=== PATIENT | male | born 1965 | race Caucasian/White ===

== ENCOUNTER 2021-03-01 17:57 | Emergency (ER) | payer SELFPAY ==
[~2021-03-01] VITALS: Ht 165.1 cm; Wt 75.0 kg
[2021-03-01 18:15] VITALS: BP 105/81
== END 2021-03-01 19:35 | disposition left against medical advice (07) ==
LOC: ER 18:55
DX: Z53.21 Procedure and treatment not carried out due to patient leaving prior to being seen by health care provider (principal)

== ENCOUNTER 2021-08-20 14:56 | Inpatient (IN) | payer MEDICARE, MEDICAID ==
[~2021-08-20] VITALS: Ht 177.8 cm; Wt 77.4 kg
[2021-08-20] MEDS ORDERED: SODIUM CHLORIDE 0.9% 1,000 ML IV ONE (16:00)
[2021-08-20] MEDS ORDERED: LEVETIRACETAM 1000MG PREMIX 100 ML IV ONE (16:15)
[2021-08-20 16:29] LABS: CLARITY URINE CLEAR (CLEAR); COLOR URINE DARK YELLOW (YELLOW); KETONES URINE 1+ (NEGATIVE); LEUKOCYTE ESTERASE URINE 1+ (NEGATIVE); NITRITE URINE NEGATIVE (NEGATIVE); OCCULT BLOOD URINE NEGATIVE (NEGATIVE); PROTEIN URINE TRACE (NEGATIVE); SPECIFIC GRAVITY URINE 1.024 (1.005-1.030)
[2021-08-20 16:31] LABS: BASOPHILS % 0.5 % (0.0-2.0); EOSINOPHILS % 1.5 % (0.0-5.0); HEMATOCRIT. 34.7 % (42.0-52.0); HEMOGLOBIN. 11.2 g/dL (14.0-18.0); LYMPHOCYTES % 25.2 % (20.0-50.0); MEAN CORPUSCULAR HEMOGLOBIN 29.9 pg (28.0-32.0); MEAN CORPUSCULAR VOLUME 92.9 fL (80.0-94.0); MEAN PLATELET VOLUME 10.2 fl (7.4-10.4); MONOCYTES % 13.4 % (2.0-8.0); NEUTROPHILS % 59.4 % (40.0-76.0); RED BLOOD CELL COUNT 3.74 mill/uL (4.7-6.1); RED CELL DISTRIBUTION WIDTH 18.4 % (11.6-14.6)
[2021-08-20 16:33] LABS: CHLORIDE 104 mEq/L (98-107)
[2021-08-20 16:37] LABS: ETHANOL BLOOD < 10 mg/dL
[2021-08-20 16:50] LABS: *AMPHETAMINES SCREEN URINE NEGATIVE (NEGATIVE)
[2021-08-20 16:51] LABS: *BARBITURATES SCREEN URINE NEGATIVE (NEGATIVE); *BENZODIAZEPINES SCREEN URINE NEGATIVE (NEGATIVE); *COCAINE SCREEN URINE NEGATIVE (NEGATIVE); METHADONE URINE SCREEN NEGATIVE (NEGATIVE); OPIATES URINE SCREEN NEGATIVE (NEGATIVE); PHENCYCLIDINE URINE SCREEN NEGATIVE (NEGATIVE)
[2021-08-20 16:54] LABS: CANNABINOID URINE SCREEN NEGATIVE (NEGATIVE)
[2021-08-20] MEDS ORDERED: IOHEXOL-350 100 ML BOTTLE ONE (20:44)
[2021-08-20] MEDS: CEFTRIAXONE 1 G PREMIX 50 ML IV NR ×2 (22:27→23:23)
[2021-08-21] VITALS (7 sets, daily range): BP systolic 17–125; BP diastolic 72–99
[2021-08-21] MEDS ORDERED: ONDANSETRON HCL 4MG/2ML INJ IV PRN (05:45)
[2021-08-21] MEDS ORDERED: DOCUSATE SODIUM 100MG CAPSULE PO PRN (05:45)
[2021-08-21] MEDS ORDERED: HYDROCODONE/ACETAMINOPHEN 5/325MG TABLET PO PRN (05:45)
[2021-08-21] MEDS ORDERED: GUAIFENESIN 200MG/10ML SUGAR FREE UDC PO PRN (05:45)
[2021-08-21] MEDS ORDERED: CLONIDINE 0.1MG TABLET PO PRN (05:45)
[2021-08-21] MEDS ORDERED: ACETAMINOPHEN 325MG TABLET PO PRN (05:45)
[2021-08-21] MEDS ORDERED: LORAZEPAM 2MG/ML CPJ IV PRN (05:45)
[2021-08-21] MEDS ORDERED: MAGNESIUM/ALUMINUM HYDROXIDE/SIMETHICONE 30ML UDC PO PRN (05:45)
[2021-08-21] MEDS ORDERED: DEXTROSE 50% WATER 50ML SYRINGE IV PRN (06:00)
[2021-08-21] MEDS: BLOOD SUGAR DIAGNOSTIC STRIP TEST SCH ×4 (06:14→21:35)
[2021-08-21] MEDS: INSULIN LISPRO 100 UNITS/ML SUBCUT SCH ×4 (06:14→21:35)
[2021-08-21] MEDS: AMLODIPINE 10MG TABLET PO SCH (09:22)
[2021-08-21] MEDS: LEVETIRACETAM 500MG TABLET PO SCH ×2 (09:22→21:34)
[2021-08-21 10:46] LABS: HEMATOCRIT. 29.2 % (42.0-52.0); HEMOGLOBIN. 9.5 g/dL (14.0-18.0); MEAN CORPUSCULAR HEMOGLOBIN 30.5 pg (28.0-32.0); MEAN CORPUSCULAR VOLUME 93.7 fL (80.0-94.0); MEAN PLATELET VOLUME 10.2 fl (7.4-10.4); RED BLOOD CELL COUNT 3.12 mill/uL (4.7-6.1); RED CELL DISTRIBUTION WIDTH 18.7 % (11.6-14.6)
[2021-08-21 10:50] LABS: PLATELET 47 x1000/uL (130-400)
[2021-08-21 11:11] LABS: CHLORIDE 104 mEq/L (98-107)
[2021-08-21 11:17] LABS: PLATELET ESTIMATE MARKEDLY DECREASED
[2021-08-21] MEDS ORDERED: POTASSIUM CHLORIDE 20MEQ TABLET SR PO SCH (14:00)
[2021-08-22] VITALS: BP 111/78
[2021-08-22 04:00] VITALS: BP 115/77
[2021-08-22] MEDS: INSULIN LISPRO 100 UNITS/ML SUBCUT SCH ×4 (06:12→20:55)
[2021-08-22] MEDS: BLOOD SUGAR DIAGNOSTIC STRIP TEST SCH ×4 (06:12→20:43)
[2021-08-22 06:53] LABS: EOSINOPHILS % 2.7 % (0.0-5.0); HEMATOCRIT. 32.2 % (42.0-52.0); HEMOGLOBIN. 10.4 g/dL (14.0-18.0); LYMPHOCYTES % 38.9 % (20.0-50.0); MEAN CORPUSCULAR HEMOGLOBIN 30.4 pg (28.0-32.0); MEAN CORPUSCULAR VOLUME 94.2 fL (80.0-94.0); MEAN PLATELET VOLUME 9.1 fl (7.4-10.4); MONOCYTES % 14.4 % (2.0-8.0); PLATELET 56 x1000/uL (130-400); RED BLOOD CELL COUNT 3.41 mill/uL (4.7-6.1); RED CELL DISTRIBUTION WIDTH 18.6 % (11.6-14.6)
[2021-08-22 06:59] LABS: CHLORIDE 105 mEq/L (98-107)
[2021-08-22 08:11] VITALS: BP 115/77
[2021-08-22] MEDS: LEVETIRACETAM 500MG TABLET PO SCH ×2 (08:45→20:53)
[2021-08-22] MEDS: AMLODIPINE 10MG TABLET PO SCH (08:45)
[2021-08-22 12:00] VITALS: BP 114/78
[2021-08-22 16:00] VITALS: BP 108/80
[2021-08-22 20:00] VITALS: BP 112/85
[2021-08-22] MEDS ORDERED: NALOXONE HCL 0.4MG/ML VIAL IV PRN (22:30)
[2021-08-23] VITALS: BP 113/80
[2021-08-23 04:00] VITALS: BP 103/76
[2021-08-23] MEDS: BLOOD SUGAR DIAGNOSTIC STRIP TEST SCH ×4 (06:16→20:56)
[2021-08-23] MEDS: INSULIN LISPRO 100 UNITS/ML SUBCUT SCH ×4 (06:16→21:04)
[2021-08-23 08:00] VITALS: BP 101/71
[2021-08-23] MEDS: LEVETIRACETAM 500MG TABLET PO SCH ×2 (08:44→20:56)
[2021-08-23] MEDS: AMLODIPINE 10MG TABLET PO SCH (08:45)
[2021-08-23 12:00] VITALS: BP 131/89
[2021-08-23 13:14] LABS: PLATELET 49 x1000/uL (130-400)
[2021-08-23 16:00] VITALS: BP 105/73
[2021-08-23] MEDS ORDERED: AMLO10TA80 PO (19:49)
[2021-08-23] MEDS ORDERED: KEPP500 PO (19:51)
[2021-08-23 20:00] VITALS: BP 114/84
[2021-08-24] VITALS: BP 112/79
[2021-08-24 04:00] VITALS: BP 112/78
[2021-08-24] MEDS: BLOOD SUGAR DIAGNOSTIC STRIP TEST SCH (06:33)
[2021-08-24] MEDS: INSULIN LISPRO 100 UNITS/ML SUBCUT SCH (06:35)
== END 2021-08-24 08:30 | DRG 101 ==
LOC: ER 14:56 → 7EST 20:35 → ENRESERV 23:17
PROVIDERS: ADMIT Hospitalist; ATTEND Hospitalist
DX: G40.909 Epilepsy, unspecified, not intractable, without status epilepticus (principal); E44.1 Mild protein-calorie malnutrition; E11.9 Type 2 diabetes mellitus without complications; Z20.822 Contact with and (suspected) exposure to COVID-19; R26.0 Ataxic gait; E87.6 Hypokalemia; Z59.01 Sheltered homelessness; Z82.49 Family history of ischemic heart disease and other diseases of the circulatory system; Z86.73 Personal history of transient ischemic attack (TIA), and cerebral infarction without residual deficits; Z68.24 Body mass index [BMI] 24.0-24.9, adult
CPT/HCPCS: 36415; 70496; 70498; 70551; 71045; 80053; 80305; 80320; 81003; 82962; 83605; 84484; 85025; 86850; 86900; 87426; 93005; 97162; 99291; J0696; J1815; J1953; J7030; Q9967; G0480

== ENCOUNTER 2022-09-13 14:26 | Emergency (ER) | payer BC, MEDICAID ==
[~2022-09-13] VITALS: Ht 170.2 cm; Wt 68.0 kg
[~2022-09-13 14:26] MED LIST: AMLO10TA80 PO; KEPP500 PO
[2022-09-13 15:25] LABS: CHLORIDE 87 mEq/L (98-107); HEMATOCRIT. 30.1 % (42.0-52.0); HEMOGLOBIN. 9.8 g/dL (14.0-18.0); MEAN CORPUSCULAR HEMOGLOBIN 29.2 pg (28.0-32.0); MEAN CORPUSCULAR VOLUME 89.5 fL (80.0-94.0); MEAN PLATELET VOLUME 8.7 fl (7.4-10.4); PLATELET 166 x1000/uL (130-400); RED BLOOD CELL COUNT 3.36 mill/uL (4.7-6.1); RED CELL DISTRIBUTION WIDTH 21.4 % (11.6-14.6)
[2022-09-13 17:21] LABS: PLATELET ESTIMATE NORMAL
[2022-09-13 22:02] VITALS: BP 120/76
== END 2022-09-13 22:03 | disposition home or self-care (01) ==
LOC: ER 14:26
DX: F10.129 Alcohol abuse with intoxication, unspecified (principal); F17.200 Nicotine dependence, unspecified, uncomplicated; E11.9 Type 2 diabetes mellitus without complications; E87.1 Hypo-osmolality and hyponatremia; D64.9 Anemia, unspecified; Z86.73 Personal history of transient ischemic attack (TIA), and cerebral infarction without residual deficits; Z86.59 Personal history of other mental and behavioral disorders; Y90.9 Presence of alcohol in blood, level not specified
CPT/HCPCS: 36415; 71045; 76604; 80053; 83880; 84484; 85025; 93005; 93880; 99285

== ENCOUNTER 2022-11-07 22:13 | Emergency (ER) | payer MEDICARE, MEDICAID ==
[~2022-11-07] VITALS: Ht 177.8 cm; Wt 80.0 kg
[2022-11-07] MEDS ORDERED: LEVETIRACETAM 500MG TABLET PO ONE (22:30)
[2022-11-07] MEDS ORDERED: SODIUM CHLORIDE 0.9% 1,000 ML IV ONE (22:30)
[2022-11-07 23:19] LABS: EOSINOPHILS % 6.3 % (0.0-5.0); HEMATOCRIT. 28.9 % (42.0-52.0); HEMOGLOBIN. 9.2 g/dL (14.0-18.0); LYMPHOCYTES % 37.5 % (20.0-50.0); MEAN CORPUSCULAR HEMOGLOBIN 27.4 pg (28.0-32.0); MEAN CORPUSCULAR VOLUME 85.8 fL (80.0-94.0); MEAN PLATELET VOLUME 7.7 fl (7.4-10.4); MONOCYTES % 9.9 % (2.0-8.0); NEUTROPHILS % 45.3 % (40.0-76.0); PLATELET 109 x1000/uL (130-400); RED BLOOD CELL COUNT 3.36 mill/uL (4.7-6.1); RED CELL DISTRIBUTION WIDTH 20.1 % (11.6-14.6)
[2022-11-07 23:30] LABS: CHLORIDE 107 mEq/L (98-107)
[2022-11-07 23:39] LABS: ETHANOL BLOOD 271 mg/dL
[2022-11-08 06:32] VITALS: BP 122/87
== END 2022-11-08 06:34 | disposition home or self-care (01) ==
LOC: ER 22:26
DX: R56.9 Unspecified convulsions (principal); F10.229 Alcohol dependence with intoxication, unspecified; Y90.8 Blood alcohol level of 240 mg/100 ml or more; E11.9 Type 2 diabetes mellitus without complications; Z86.73 Personal history of transient ischemic attack (TIA), and cerebral infarction without residual deficits; F17.200 Nicotine dependence, unspecified, uncomplicated; F12.10 Cannabis abuse, uncomplicated
CPT/HCPCS: 36415; 80053; 80320; 85025; 96360; 99283; J7030; G0480

== ENCOUNTER 2022-12-22 18:40 | Emergency (ER) | payer MEDICARE, MEDICAID ==
[~2022-12-22] VITALS: Ht 177.8 cm; Wt 78.0 kg
[2022-12-22 18:44] VITALS: BP 112/80
[2022-12-22] MEDS ORDERED: LEVETIRACETAM 500MG TABLET PO ONE (23:00)
[2022-12-22] MEDS ORDERED: KEPP500 PO (23:13)
== END 2022-12-23 00:04 | disposition home or self-care (01) ==
LOC: ER 18:40
DX: R60.0 Localized edema (principal); F41.9 Anxiety disorder, unspecified; F31.9 Bipolar disorder, unspecified; E11.9 Type 2 diabetes mellitus without complications; I10 Essential (primary) hypertension; F12.90 Cannabis use, unspecified, uncomplicated; Z76.0 Encounter for issue of repeat prescription; Z86.73 Personal history of transient ischemic attack (TIA), and cerebral infarction without residual deficits; Z87.891 Personal history of nicotine dependence
CPT/HCPCS: 99283